=== PATIENT | male | born 1945 | race Caucasian/White ===

== ENCOUNTER 2017-02-23 05:18 | Emergency (ER) | payer OTHER ==
[~2017-02-23] VITALS: Ht 175.3 cm; Wt 57.2 kg
[~2017-02-23 05:18] MED LIST: ASPIRIN81 M2 PO; AUGMENTIN875 MG PO; COUMADIN5 MG PO; COZAAR50 MG PO; DOCUSATE SODIU100 MG PO; LOVENOX80 MG/0.8 SC; METFORMIN HCL500 MG PO; MYSOLINE50 MG PO; PANTOPRAZOLE SO40 MG PO
[2017-02-23 05:56] LABS: HEMATOCRIT 45.1 % (38.0-50.0); MCH 32.3 PG (29.0-34.0); MCHC 32.8 G/DL (30.0-36.0); MCV 98.5 FL (86-99); MEAN PLAT.VOLUME 12.2 uM^3 (9.0-12.4); PLATELET COUNT 251 K/uL (156-360); RBC DIS.WIDTH-CV 14.2 % (11.8-14.6); RBC DIS.WIDTH-SD 51.3 % (39-53); RED BLOOD COUNT 4.58 M/uL (4.00-5.50); WHITE BLOOD COUNT 14.2 K/uL (4.1-10.2)
[2017-02-23 06:02] LABS: CHLORIDE 99 mEq/L (99-109); SODIUM 139 mEq/L (136-147)
[2017-02-23 06:04] LABS: GLUCOSE 253 mg/dL (70-99)
[2017-02-23 06:05] LABS: ANION GAP 19 MEQ/L (2-14)
[2017-02-23 06:06] LABS: TOTAL BILIRUBIN 1.7 mg/dL (0.0-1.0)
[2017-02-23 06:08] LABS: ALKALINE PHOSPHATASE 173 IU/L (3-129); GFR ESTIMATE (CALCULATED) > 59 mL/min/
[2017-02-23 06:09] LABS: UREA NITROGEN (BUN) 28 mg/dL (9-23)
[2017-02-23 06:11] LABS: LIPASE 6 U/L (1.0-51.0)
[2017-02-23 08:21] VITALS: BP 98/68
== END 2017-02-23 08:23 | disposition home or self-care (01) ==
LOC: EME → EDBD 05:18 → EME 05:18
PROVIDERS: Emergency Medicine
DX: R10.9 Unspecified abdominal pain (principal); C16.9 Malignant neoplasm of stomach, unspecified; E11.9 Type 2 diabetes mellitus without complications; I10 Essential (primary) hypertension; Z88.6 Allergy status to analgesic agent
CPT/HCPCS: 80053; 81003; 83605; 83690; 85027; 99281; 99284; J2270